=== PATIENT | male | born 1980 | race Caucasian/White ===

== ENCOUNTER 2025-07-05 11:09 | Emergency (ER) | payer OTHER, SELFPAY ==
--- NOTE | ~2025-07-05 | XR_ITS ---
Examination: XR chest 2V Clinical History: cough, smoker, coarse Comparison: None Technique: PA and Lateral Findings: Cardiomediastinal silhouette normal size and configuration. Lungs clear. No acute bony abnormality. IMPRESSION: 1. No acute cardiopulmonary findings. Reviewed, dictated and finalized at location R. [employer] ATTENDANT
[2025-07-05 11:22] VITALS: BP 142/93; PULSE 84; RESP 20; TEMP 37.1; O2SAT 96
--- NOTE | 2025-07-05 12:10 | ED.URI ---
HPI - URI/Sore Throat General Chief Complaint: Upper Respiratory Infection Stated Complaint: Nasal Congestion/Headache/Sore Throat Time Seen by Provider: 07/05/25 12:00 Source: patient and RN notes reviewed Mode of arrival: ambulatory Limitations: no limitations History of Present Illness HPI Narrative: 45-year-old male patient presents to the [facility] complaining of upper respiratory symptoms for 10 days. Patient reports congestion, mucopurulent nasal drainage, sore throat, cough, wheezing has progressively gotten worse over the last 10 days. Patient is a smoker, he says in unable to smoke since he has not been feeling well. Patient denies any significant past medical history, denies any history of COPD or lung problems. Patient trying [id number] sinus medications without relief. Patient denies any chest pain, difficulty breathing, shortness of breath, nausea, vomiting, diarrhea, or any other symptoms. Related Data Allergies Allergy/AdvReac Type Severity Reaction Status Date / Time No Known Allergies Allergy Verified 07/05/25 11:36 Review of Systems Review of Systems: CONSTITUTIONAL: Denies fever, chills, or sweats. EYES: Denies visual changes, redness, or discharge. ENT: Denies rhinorrhea, or otalgia. Positive for congestion, sinus pressure, mucopurulent nasal drainage, sore throat. CARDIOVASCULAR: Denies chest pain, palpitations, or edema. RESPIRATORY: Positive for cough and wheezing. Negative for dyspnea. GASTROINTESTINAL: Denies abdominal pain, nausea, vomiting, or diarrhea. GENITOURINARY: Denies dysuria or hematuria. SKIN: Denies rash or itching. MUSCULOSKELETAL: Denies back pain, joint pain, or myalgia. NEUROLOGIC: Denies headache, numbness, or weakness. PSYCHIATRIC: Denies anxiety or depression. All other systems reviewed are negative, except as documented in HPI. PMFSH Comments At the time of my signature, I reviewed and agree with the nursing past medical, surgical, social, and family history. There is no relevant family history pertinent to the patient complaint. Exam Narrative: GENERAL: This is a well-nourished, well-developed adult, in no apparent distress. They are non ill-appearing, nontoxic appearing. HEAD: normocephalic, atraumatic. EYES: Sclera clear/white. Conjunctiva normal. Vision is grossly intact. Extraocular movements intact EARS: External ears normal, auditory canals clear and without drainage, TMs normal without perforation. Hearing grossly intact. NOSE: External nose normal with no obvious nasal discharge, nasal turbinates erythematous with exudate, no rhinorrhea. THROAT: Mucous membranes moist, posterior pharynx erythematous and with exudate. Tonsils 2+ erythematous. Uvula midline. NECK: Neck supple, non-tender without lymphadenopathy, masses or thyromegaly. CARDIOVASCULAR: Regular rate and rhythm without murmurs, gallops, or rubs. RESPIRATORY: Wheezes heard throughout. Breath sounds equal bilaterally. No rales, or rhonchi. Respiratory rate normal, respiratory effort nonlabored, no respiratory distress SKIN: warm, Dry, intact with no suspicious lesions or rash, good texture and turgor. NEURO: awake, alert, and oriented to person, place and time. There were no obvious focal neurologic abnormalities. EXTREMITIES: No joint tenderness, effusion, or edema noted. BACK: Nontender without deformity. No CVA tenderness. Course Course Level of Care: Express Care Visit Vital Signs Vital signs: Vital Signs Temperature 98.7 F 07/05/25 11:22 Pulse Rate 84 07/05/25 11:22 Respiratory Rate 20 07/05/25 11:22 Blood Pressure 142/93 H 07/05/25 11:22 Pulse Oximetry 96 07/05/25 11:22 Oxygen Delivery Room Air 07/05/25 11:22 Temperature 98.7 F 07/05/25 11:22 Pulse Rate 84 07/05/25 11:22 Respiratory Rate 20 07/05/25 11:22 Blood Pressure 142/93 H 07/05/25 11:22 Pulse Oximetry 96 07/05/25 11:22 Oxygen Delivery Room Air 07/05/25 11:22 [facility] Narrative Medical decision making narrative: Chest x-ray negative for any acute cardiopulmonary findings. Patient wheezing throughout all lopez, no respiratory distress, vital signs hemodynamically stable. Patient likely has a sinobronchitis, treat with Augmentin gum prednisone, and albuterol inhaler as needed for wheezing or shortness of breath. Discussed importance of tobacco cessation. Discussed physical exam findings. Advised supportive measures and signs/symptoms to go to the ER. Pt is appropriate for outpt treatment and f/u. Differential Diagnosis Differential Diagnosis: Differential diagnostic considerations for upper respiratory infection include upper respiratory infection, croup, otitis media, sinusitis, viral infection, bronchitis, influenza, pharyngitis, strep, COPD, uvulitis. Imaging Data Radiologist's impression: ITS Impressions Chest X-Ray 07/05/25 11:49 IMPRESSION: 1. No acute cardiopulmonary findings. Critical Care Time Critical Care Time Critical Care Time: No Discharge Plan Discharge Clinical Impression: Sinobronchitis Patient Disposition: Home Condition: Stable Instructions: Antibiotic Form, How to Stop Smoking (ED), Sinusitis (ED) Additional Instructions: Her chest x-ray is negative for any acute cardiopulmonary findings. Take the antibiotics as directed and complete the course even if you start to feel better. Take prednisone as directed. Use inhaler as needed for wheezing or shortness of breath. You may use a Neti pot saline rinse 3 times a day with lukewarm distilled water Continue to take Tylenol or Motrin with needed for fever or pain. Follow instructions on the bottle. Use a humidifier or vaporizer at night. Drink plenty of water. 8-10 glasses per day. Use flonase 2 times per day for 5 days then as needed Take mucinex 2 times per day and be sure to take with 8oz of water. Follow up with Primary provider in 3-5 days Please go to the ER if he develops any difficulty breathing, chest pain, vomiting, worsening symptoms, or any other concerns Patient Language: Kiswahili Prescriptions: New prednisone 20 mg tablet 40 mg PO DAILY 5 Days Qty: 10 0RF albuterol sulfate [Ventolin HFA] 90 mcg/actuation HFA aerosol inhaler 2 puff inhalation QID PRN (Reason: shortness of breath or wheezing) Qty: 8.5 0RF amoxicillin-pot clavulanate 875-125 mg tablet 1 tablet PO Q12H 10 Days Qty: 20 0RF Follow-up/Referrals: Leila,Neil Molina MD [Primary Care Provider, Unknown] Time of Disposition: 12:07
== END 2025-07-05 12:10 | disposition home or self-care (01) ==
PROVIDERS: PCP Internal Medicine
DX: J32.9 Chronic sinusitis, unspecified (principal); J40 Bronchitis, not specified as acute or chronic; E03.9 Hypothyroidism, unspecified; E78.00 Pure hypercholesterolemia, unspecified
CPT/HCPCS: 71046; 99213; G0463